=== PATIENT | female | born 1995 | race American Indian/Alaskan Native ===

== ENCOUNTER 2017-07-13 14:58 | Emergency (ER) | payer MEDICAID ==
[2017-07-13 15:53] VITALS: RESP 16; O2SAT 96
[2017-07-13] MEDS ORDERED: cefTRIAXone (Rocephin) 250 mg Inj IM STA (17:13)
--- NOTE | 2017-07-13 17:30 | ED PDOC ---
Arrival/HPI - General Chief Complaint: Female Genitourinary Time Seen by Provider: 07/13/17 16:01 Historian: Patient - History of Present Illness Narrative History of Present Illness (Text): 07/13/17 18:51 21-year-old female presents today with concerns for STD. Patient states her partner cheated on her and now she is having a yellow vaginal discharge. She denies chest pain or shortness of breath. Denies abdominal pain. Denies fevers or chills. Denies dysuria or urinary frequency or urgency. No other complaints. Past Medical History - Provider Review Nursing Documentation Reviewed: Yes - Travel History Have you recently traveled outside [place] w/in the past 3 mons?: No - Psychiatric Hx Psychophysiologic Disorder: No Hx Substance Use: No Family/Social History - Physician Review Nursing Documentation Reviewed: Yes Family/Social History: Unknown Family HX Smoking Status: Never Smoked Hx Alcohol Use: Yes Frequency of alcohol use: Socially Hx Substance Use: No Allergies/Home Meds Allergies/Adverse Reactions: Allergies No Known Allergies Allergy (Verified 07/13/17 15:50) Review of Systems - Review of Systems Constitutional: absent: Fatigue, Fevers Respiratory: absent: SOB, Cough Cardiovascular: absent: Chest Pain, Palpitations Gastrointestinal: absent: Abdominal Pain, Nausea, Vomiting Genitourinary Female: Vaginal Discharge. absent: Dysuria, Frequency, Hematuria , Vaginal Bleeding Musculoskeletal: absent: Arthralgias, Back Pain, Neck Pain Skin: absent: Rash, Pruritis Neurological: absent: Headache, Dizziness Psychiatric: absent: Anxiety, Depression Physical Exam Vital Signs Reviewed: Yes Vital Signs Temp Pulse Resp BP Pulse Ox 07/13/17 15:50 98.3 F 100 H 16 147/80 96 Temperature: Afebrile Blood Pressure: Normal Pulse: Regular Respiratory Rate: Normal Appearance: Positive for: Well-Appearing, Non-Toxic, Comfortable Pain Distress: None Mental Status: Positive for: Alert and Oriented X 3 - Systems Exam Head: Present: Atraumatic Mouth: Present: Moist Mucous Membranes Neck: Present: Normal Range of Motion Respiratory/Chest: Present: Clear to Auscultation, Good Air Exchange. No: Respiratory Distress, Accessory Muscle Use Cardiovascular: Present: Regular Rate and Rhythm, Normal S1, S2. No: Murmurs Abdomen: No: Tenderness, Distention, Peritoneal Signs, Rebound, Guarding Genitourinary/Pelvic Exam: Present: Normal External Genitalia, Vaginal Discharge (yellow vaginal discharge), Cervical os Closed, Other (chaparoned by maria isabel ku). No: Vaginal Bleeding, Vaginal Lesions, Adenexal Tenderness , Adenexal Mass, Cervical Motion Tendernes, Odor Back: Present: Normal Inspection. No: CVA Tenderness, Midline Tenderness, Paraspinal Tenderness Upper Extremity: Present: Normal ROM Lower Extremity: Present: Normal ROM Neurological: Present: GCS=15, Speech Normal Skin: Present: Warm, Dry, Normal Color. No: Rashes Psychiatric: Present: Alert, Oriented x 3 Medical Decision Making ED Course and Treatment: 07/13/17 18:53 Patient is nontoxic well-appearing in no distress with stable vital signs Ceftriaxone 250 mg IM Zithromax 1 g p.o. given UA: Positive leukocytes many bacteria, positive yeast Patient given Diflucan in the emergency room Plan discharged home on Bactrim for UTI Gonorrhea and Chlamydia cultures are pending. Advised patient to refrain from sex for 10 days followup with the primary care physician within the next 2 days or return if symptoms worsen persist or if new symptoms develop. Patient verbalizes understanding of discharge instructions and need for immediate followup. all aspects of this case were discussed the attending of record. Impression: Vaginal discharge, uti Follow up primary care physician within the next 2 days Follow-up with [facility] REACTOR OPERATOR within the next 2 days Return if symptoms worsen persist or if new symptoms develop. - Lab Interpretations Lab Results: Lab Results 07/13/17 17:11: Urine Color Yellow, Urine Appearance Clear, Urine pH 7.0, Ur Specific [place] 1.025, Urine Protein Trace H, Urine Glucose (UA) Negative, Urine Ketones Trace H, Urine Blood Negative, Urine Nitrate Negative, Urine Bilirubin Negative, Urine Urobilinogen 0.2, Ur Leukocyte Esterase Large H, Urine RBC 0 - 2, Urine WBC 25 - 30, Ur Epithelial Cells 6 - 8, Amorphous Sediment Few, Urine Bacteria Many, Hyaline Casts 0 - 2, Fine Granular Casts 0 - 2, Urine Other Uyeast - Medication Orders Current Medication Orders: Discontinued Medications Azithromycin (Zithromax) 1,000 mg PO STAT STA PRN Reason: Protocol Stop: 07/13/17 17:14 Ceftriaxone Sodium (Rocephin) 250 mg IM STAT STA PRN Reason: Protocol Stop: 07/13/17 17:14 Disposition/Present on Arrival - Present on Arrival Any Indicators Present on Arrival: No History of DVT/PE: No History of Uncontrolled Diabetes: No Urinary Catheter: No History of Decub. Ulcer: No History Surgical Site Infection Following: None - Disposition Have Diagnosis and Disposition been Completed?: Yes Diagnosis: Vaginal discharge, Urinary tract infection Disposition: HOME/ ROUTINE Disposition Time: 17:43 Patient Plan: Discharge Patient Problems: Current Active Problems Problem Status Onset Urinary tract infection Acute Vaginal discharge Acute Condition: GOOD Discharge Instructions (ExitCare): Vaginal Discharge in Adults, Urinary Tract Infections in Adults Additional Instructions: bactrim; 1 tablet twice daily x 3 days Follow up primary care physician within the next 2 days Follow up with the [facility] REACTOR OPERATOR within the next 2 days. Return if symptoms worsen persist or if new symptoms develop. Prescriptions: Sulfamethoxazole/Trimethoprim [Bactrim DS 800 mg-160 mg] 1 tab PO BID #6 tab Referrals: Bhavin Green DO [Staff Provider] - Follow up with primary Roberto Gutierrez MD [Staff Provider] - Follow up with primary Forms: [employer] (Kiswahili)
[2017-07-13 18:01] LABS: URINE APPEARANCE CLEAR (CLEAR); URINE BILIRUBIN NEGATIVE (NEGATIVE); URINE BLOOD NEGATIVE (NEGATIVE); URINE COLOR YELLOW (YELLOW); URINE GLUCOSE (UA) NEGATIVE (NEGATIVE); URINE LEUKOCYTE ESTERASE LARGE Leu/uL (NEGATIVE); URINE PROTEIN TRACE mg/dL (<30 mg/dL); URINE UROBILINOGEN 0.2 E.U./dL (<1 E.U./dL)
[2017-07-13 18:05] LABS: URINE BACTERIA MANY (NEG); URINE HYALINE CAST 0 - 2 /hpf; URINE RBC 0 - 2 /hpf (0-2); URINE WBC 25 - 30 /hpf (0-6)
[2017-07-13 18:06] LABS: URINE AMORPHOUS SEDIMENT FEW; URINE FINE GRANULAR CAST 0 - 2 /hpf (0-2)
[2017-07-13 18:29] VITALS: BP 107/73; PULSE 70; TEMP 98.1
== END 2017-07-13 18:27 | disposition home or self-care (01) ==
LOC: ED 14:58 → MERGE 14:58 → ED 18:27
DX: N39.0 Urinary tract infection, site not specified (principal); N89.8 Other specified noninflammatory disorders of vagina
CPT/HCPCS: 81001; 87086; 87491; 87591; 96372; 99281; J0696

== ENCOUNTER 2017-12-10 10:34 | Emergency (ER) | payer SELFPAY ==
[2017-12-10 10:56] VITALS: BMI 35.0
[2017-12-10 11:22] VITALS: RESP 18; TEMP 98.1; O2SAT 98
[2017-12-10] MEDS ORDERED: cefTRIAXone (Rocephin) 250 mg Inj IM STA (11:30)
--- NOTE | 2017-12-10 11:31 | ED PDOC ---
Arrival/HPI - General Historian: Patient - History of Present Illness Narrative History of Present Illness (Text): 12/10/17 12:00 22-year-old female presents today with vaginal discharge for the past few weeks. Patient states she is also been having intermittent bleeding after intercourse. She denies abdominal pain. No nausea vomiting or diarrhea. No dizziness or weakness. Patient has a history of STD in the past. Patient states she's having unprotected sex with the same partner for the past 8 years. no fever/chills. no other complaints. <Cydney Gandara - Last Filed: 12/10/17 13:25> <Wesley Dowell - Last Filed: 12/13/17 18:53> - General Chief Complaint: Female Genitourinary Time Seen by Provider: 12/10/17 10:58 Past Medical History - Provider Review Nursing Documentation Reviewed: Yes - Travel History Have you recently traveled outside [place] w/in the past 3 mons?: No - Infectious Disease Hx of Infectious Diseases: None - Psychiatric Hx Psychophysiologic Disorder: No Hx Substance Use: No - Anesthesia Hx Anesthesia: No <Cydeny Gandara - Last Filed: 12/10/17 13:25> Family/Social History - Physician Review Nursing Documentation Reviewed: Yes Family/Social History: Unknown Family HX Smoking Status: Never Smoked Hx Alcohol Use: No Hx Substance Use: No <Cydney Gandara - Last Filed: 12/10/17 13:25> Allergies/Home Meds <Cydney Gandara - Last Filed: 12/10/17 13:25> <Wesley Dowell - Last Filed: 12/13/17 18:53> Allergies/Adverse Reactions: Allergies No Known Allergies Allergy (Unverified 07/14/15 05:42) Review of Systems - Review of Systems Constitutional: absent: Fatigue, Fevers Respiratory: absent: SOB, Cough Cardiovascular: absent: Chest Pain, Palpitations Gastrointestinal: absent: Abdominal Pain, Constipation, Diarrhea, Nausea, Vomiting Genitourinary Female: Vaginal Bleeding, Vaginal Discharge. absent: Dysuria, Frequency, Hematuria Musculoskeletal: absent: Arthralgias, Back Pain, Neck Pain Skin: absent: Rash, Pruritis Neurological: absent: Headache, Dizziness Psychiatric: absent: Anxiety, Depression <Cydney Gandara - Last Filed: 12/10/17 13:25> Physical Exam Vital Signs Reviewed: Yes Vital Signs Temp Pulse Resp BP Pulse Ox 12/10/17 11:22 98.1 F 87 18 110/71 98 Temperature: Afebrile Blood Pressure: Normal Pulse: Regular Respiratory Rate: Normal Appearance: Positive for: Well-Appearing, Non-Toxic, Comfortable Pain Distress: None Mental Status: Positive for: Alert and Oriented X 3 - Systems Exam Head: Present: Atraumatic Mouth: Present: Moist Mucous Membranes Neck: Present: Normal Range of Motion Respiratory/Chest: Present: Clear to Auscultation, Good Air Exchange. No: Respiratory Distress, Accessory Muscle Use Cardiovascular: Present: Regular Rate and Rhythm, Normal S1, S2. No: Murmurs Abdomen: No: Tenderness, Distention, Peritoneal Signs, Rebound, Guarding Genitourinary/Pelvic Exam: Present: Normal External Genitalia, Cervical os Closed, Other (chaparoned by Lilly ARRIAGA). No: Vaginal Discharge, Vaginal Bleeding, Vaginal Lesions, Adenexal Tenderness, Adenexal Mass, Cervical Motion Tendernes, Odor Neurological: Present: GCS=15 Skin: Present: Warm, Dry, Normal Color. No: Rashes Psychiatric: Present: Alert, Oriented x 3 <Cydney Gandara - Last Filed: 12/10/17 13:25> Vital Signs Temp Pulse Resp BP Pulse Ox 12/10/17 12:54 82 18 112/72 98 12/10/17 11:22 98.1 F 87 18 110/71 98 <Wesley Dowell - Last Filed: 12/13/17 18:53> Medical Decision Making ED Course and Treatment: 12/10/17 12:04 Patient is nontoxic well-appearing in no distress with stable vital signs Ceftriaxone 250 mg IM Zithromax 1 g p.o. given Gonorrhea and Chlamydia cultures are pending. Advised patient to refrain from sex for 10 days followup with the primary care physician within the next 2 days or return if symptoms worsen persist or if new symptoms develop. Patient verbalizes understanding of discharge instructions and need for immediate followup. all aspects of this case were discussed the attending of record. Impression: Vaginal discharge Follow up primary care physician within the next 2 days Follow-up with the treatment counselor within the next 2 days Return if symptoms worsen persist or if new symptoms develop. - Medication Orders Current Medication Orders: Azithromycin (Zithromax) 1,000 mg PO STAT STA; Protocol Stop: 12/10/17 11:31 Ceftriaxone Sodium (Rocephin) 250 mg IM STAT STA; Protocol Stop: 12/10/17 11:31 <Cydney Gandara - Last Filed: 12/10/17 13:25> - Lab Interpretations Microbiology Results: Microbiology Results 12/10/17 Unknown Urine,Clean Catch Urine Culture - Final 10-50,000 CFU/ML. MULTIPLE SPECIES. PROBABLE CONTAMINATION. Lab Results: Lab Results 12/10/17 11:00: Urine Color Yellow, Urine Appearance Clear, Urine pH 6.0, Ur Specific [place] >= 1.030, Urine Protein Trace H, Urine Glucose (UA) Negative, Urine Ketones Trace H, Urine Blood Negative, Urine Nitrate Negative, Urine Bilirubin Negative, Urine Urobilinogen 0.2, Ur Leukocyte Esterase Small H, Urine RBC 0 - 2, Urine WBC 5 - 10, Ur Epithelial Cells 6 - 8, Urine Bacteria Many, Fine Granular Casts 0 - 2, Urine Other Uyeast - Medication Orders Current Medication Orders: Discontinued Medications Azithromycin (Zithromax) 1,000 mg PO STAT STA; Protocol Stop: 12/10/17 11:31 Last Admin: 12/10/17 11:51 Dose: 1,000 mg Ceftriaxone Sodium (Rocephin) 250 mg IM STAT STA; Protocol Stop: 12/10/17 11:31 Last Admin: 12/10/17 11:51 Dose: 250 mg IM Administration Charges Document 12/10/17 11:51 GMD (Rec: 12/10/17 11:51 GMD [id number]) Injection Site MAR Injection Site Right Gluteus Luis Charges for Administration # of IM Administrations 1 <Wesley Dowell - Last Filed: 12/13/17 18:53> - PA / [employer]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 CED has examined the patient and agrees with the treatment plan. <Wesley Dowell - Last Filed: 12/13/17 18:53> Disposition/Present on Arrival - Present on Arrival Any Indicators Present on Arrival: No History of DVT/PE: No History of Uncontrolled Diabetes: No Urinary Catheter: No History of Decub. Ulcer: No History Surgical Site Infection Following: None - Disposition Have Diagnosis and Disposition been Completed?: Yes Disposition Time: 11:31 Patient Plan: Discharge <Cydney Gandara Shahram - Last Filed: 12/10/17 13:25> <Wesley Dowell - Last Filed: 12/13/17 18:53> - Disposition Diagnosis: Vaginal discharge Disposition: HOME/ ROUTINE Condition: GOOD Discharge Instructions (ExitCare): Vaginal Discharge in Adults Additional Instructions: Follow up primary care physician within the next 2 days Follow-up with the treatment counselor within the next 2 days keflex; twice daily x 7 days. Return if symptoms worsen persist or if new symptoms develop. Prescriptions: Cephalexin [Keflex] 500 mg PO BID #14 capsule Referrals: Geoff Sexton MD [Primary Care Provider] - Follow up with primary Anca Ordonez MD [Medical Doctor] - Follow up with primary Forms: [employer] ([place]), WORK NOTE
[2017-12-10 11:39] LABS: URINE BILIRUBIN NEGATIVE (NEGATIVE); URINE BLOOD NEGATIVE (NEGATIVE); URINE GLUCOSE (UA) NEGATIVE (NEGATIVE); URINE LEUKOCYTE ESTERASE SMALL Leu/uL (NEGATIVE); URINE PROTEIN TRACE mg/dL (<30 mg/dL); URINE UROBILINOGEN 0.2 E.U./dL (<1 E.U./dL)
[2017-12-10 11:43] LABS: URINE APPEARANCE CLEAR (CLEAR); URINE COLOR YELLOW (YELLOW)
[2017-12-10 11:47] LABS: URINE BACTERIA MANY (NEG); URINE RBC 0 - 2 /hpf (0-2)
[2017-12-10 11:49] LABS: URINE FINE GRANULAR CAST 0 - 2 /hpf (0-2)
[2017-12-10 12:55] VITALS: BP 112/72; PULSE 82
== END 2017-12-10 13:00 | disposition home or self-care (01) ==
LOC: ED 10:34
DX: N89.8 Other specified noninflammatory disorders of vagina (principal)
CPT/HCPCS: 81001; 87086; 87491; 87591; 96372; 99284; J0696